=== PATIENT | female | born 1970 | race Caucasian/White ===

== ENCOUNTER 2025-01-13 23:57 | Emergency (ER) | payer SELFPAY ==
[~2025-01-13] VITALS: Ht 152.4 cm; Wt 59.0 kg
[2025-01-14 00:01] VITALS: O2SAT 97
[2025-01-14 00:41] LABS: CLARITY URINE CLEAR (CLEAR); COLOR URINE YELLOW (YELLOW); GLUCOSE URINE NEGATIVE (NEGATIVE); KETONES URINE NEGATIVE (NEGATIVE); LEUKOCYTE ESTERASE URINE 2+ (NEGATIVE); NITRITE URINE POSITIVE (NEGATIVE); OCCULT BLOOD URINE 2+ (NEGATIVE); PH URINE 6.0 (4.5-8.0); PROTEIN URINE 2+ (NEGATIVE); SPECIFIC GRAVITY URINE 1.018 (1.005-1.030); UROBILINOGEN URINE 1.0 E.U./dL (0.2-1.0)
[2025-01-14] MEDS ORDERED: KETOROLAC 15MG/ML VIAL IV ONE (00:45)
[2025-01-14] MEDS: SODIUM CHLORIDE 0.9% (SEPSIS BOLUS) IV ONE (00:55)
[2025-01-14] MEDS: PIPERACILLIN/TAZO 3.375G/50ML 50 ML IV ONE (01:03)
[2025-01-14 01:13] LABS: CREATININE 0.9 mg/dL (0.6-1.0)
[2025-01-14 01:14] LABS: UREA NITROGEN BLOOD 9 mg/dL (9-23)
[2025-01-14 01:16] LABS: ASPARTATE AMINOTRANSFERASE 21 IU/L (<34); BILIRUBIN DIRECT 0.2 mg/dL (<=3.0); BILIRUBIN TOTAL 0.7 mg/dL (0.1-1.0); PROTEIN TOTAL 7.4 g/dL (6.0-8.3)
[2025-01-14 01:17] LABS: BASOPHILS % 0.4 % (0.0-2.0); EOSINOPHILS % 0.5 % (0.0-5.0); HEMATOCRIT. 37.6 % (36.0-48.0); HEMOGLOBIN. 12.6 g/dL (12.0-16.0); LYMPHOCYTES % 11.6 % (20.0-50.0); MEAN PLATELET VOLUME 7.0 fl (7.4-10.4); MONOCYTES % 8.4 % (2.0-8.0); NEUTROPHILS % 79.1 % (40.0-76.0); PLATELET 223 x1000/uL (130-400); RED BLOOD CELL COUNT 4.46 mill/uL (4.2-5.4); RED CELL DISTRIBUTION WIDTH 13.2 % (11.6-14.6)
[2025-01-14] MEDS: VANCOMYCIN 1G PREMIX 200 ML IV ONE (01:50)
[2025-01-14 02:02] LABS: INR 1.0
[2025-01-14] MEDS ORDERED: IBUP-2030 MT (02:32)
[2025-01-14] MEDS ORDERED: CEPH500C2 MT (02:32)
[2025-01-14] MEDS: KETOROLAC 15MG/ML VIAL IV NR (02:48)
[2025-01-14 04:28] VITALS: BP 133/61; PULSE 88; RESP 22; TEMP 37.5; O2SAT 95
[2025-01-14 05:46] LABS: SQUAMOUS EPITHELIAL CELL URINE RARE /lpf (RARE/1+)
[2025-01-14 05:47] LABS: WBC URINE 50-100 /hpf (0-2)
[2025-01-14 05:48] LABS: BACTERIA URINE 2+; RBC URINE 0-2 /hpf (0-2)
== END 2025-01-14 04:36 | disposition home or self-care (01) ==
LOC: ER 23:57 → CMPBEDREQ 01-14 07:17
DX: N12 Tubulo-interstitial nephritis, not specified as acute or chronic (principal); Z79.899 Other long term (current) drug therapy
CPT/HCPCS: 81025; 99285; 80076; 80048; 81003; 83880; 83605; 83735; 85025; 85610; 87040; 87086; 87186; 87077; 36415; 84145; 71045; 74176; 93005; 96367; 96365; 96366; 96375; J1885; J2543; J3373; J7030; Z7610; A4606